=== PATIENT | male | born 1955 | race Caucasian/White ===

== ENCOUNTER → 2017-01-15 | Outpatient (CLI) | payer OTHER ==
[~2017-01-15] MED LIST: ERGO500037 PO; LISI-725 PO; OPTIRAY 320 IV PRN; TAMS0.4C38 PO; ZCR20 PO; tumeric PO
--- NOTE | 2017-01-15 11:21 | DIAGNOSTIC IMAGING REPORT ---
CT ANGIOGRAM OF THE CHEST CLINICAL HISTORY: Dyspnea. Atypical chest pain. COMPARISON STUDY: No priors. TECHNIQUE: Following the IV administration of 105 cc of Optiray 320, CT angiogram of the chest was performed from the upper abdomen to the thoracic inlet utilizing the pulmonary embolus protocol. Images are reviewed in the axial, sagittal, and coronal planes. 3-D MIPS images are created and assessed. IV contrast was administered without complication. CT DOSE: 648.36 mGy.cm FINDINGS: Thyroid: Imaged portions of the thyroid gland are normal in size and attenuation. Thoracic aorta: There is mild atherosclerotic calcification of the thoracic aorta, which is normal in caliber and demonstrates standard 3-vessel arch anatomy. No dissection is seen. Pulmonary vasculature: The pulmonary trunk is normal in caliber. There are no filling defects identified in main, lobar, or segmental pulmonary branches to suggest pulmonary embolus. Heart: The heart is mildly enlarged and without pericardial effusion. The coronary arteries are densely calcified. Lungs and pleural spaces: Evaluation of lung parenchyma is degraded by respiratory motion artifact. Mild emphysema is observed. The trachea and central airways are clear. Dependent atelectasis is noted. There is no airspace consolidation typical for pneumonia or pleural effusion. Mediastinum: There is no mediastinal lymphadenopathy. Yadi: Clear. Axillae: There is no axillary lymphadenopathy. Upper abdomen: There is evidence of hepatic steatosis. A tiny hiatal hernia is observed. Skeletal structures: No lytic or blastic bony lesions are seen. IMPRESSION: 1. There is no evidence of pulmonary embolus in the main, lobar, or segmental pulmonary arteries. 2. Cardiomegaly and emphysema. 3. Hepatic steatosis. 4. There is no airspace consolidation typical for pneumonia or pleural effusion. 5. Additional findings as above. Electronically signed by: Philip Spear M.D. 01/15/2017 11:20 AM Dictated Date/Time: 01/15/2017 11:10 AM
== END | disposition home or self-care (01) ==
LOC: C.CTS 10:23
PROVIDERS: ATTEND Internal Medicine Pulmonary Disease
DX: R06.02 Shortness of breath (principal); R06.09 Other forms of dyspnea; R07.89 Other chest pain; I51.7 Cardiomegaly; J43.9 Emphysema, unspecified; K76.0 Fatty (change of) liver, not elsewhere classified

== ENCOUNTER → 2017-01-17 | Outpatient (CLI) | payer OTHER ==
[~2017-01-17] MED LIST changes: -OPTIRAY 320 IV PRN; +PERFLUTREN LIPID MICROSPHERE (DEFINITY) IV ONE
--- NOTE | 2017-01-17 15:30 | EXERCISE STRESS ECHO ---
*NOTICE TO RECEIVING LIBERTARIAN AGENCY This information is strictly Confidential and protected under [place] law. [place] law prohibits you from making any further disclosure of this information unless further disclosure is expressly permitted by the written consent of the person to whom it pertains or is authorized by law. A general authorization for the release of medical or other information is not sufficient for this purpose. Hospital accepts no responsibility if the information is made available to any other person, INCLUDING THE PATIENT. Interpretation Summary * Name: ROXI SILVA Study Date: 01/17/2017 12:42 PM BP: 125/64 mmHg * Patient Location: [facility] HR: 83 * : 1955 (M/d/yyyy) Gender: Male Height: 74 in * Age: 61 yrs Ethnicity: CA Weight: 260 lb * Ordering Physician: Saji Azevedo * Referring Physician: Saji Azevedo * Performed By: Ladonna Kern RDCS * * Reason For Study: CHEST PAIN, SOB * BSA: 2.4 m2 * -- Conclusions -- * Normal stress echocardiogram at 7 METS and a peak heart rate of 85% maximum predicted. * No exercise induced chest pain. * No ECG changes. * Baseline echocardiogram notes normal left ventricular systolic function and diastolic dysfunction. Procedure Details * ECHOEX, CPT #94574 * A contrast injection of Definity was performed to improve assessment of LV function. * Contrast was injected into an intravenous site in the left arm. * One vial of Definity ultrasound contrast was diluted in normal saline to a total volume of 10 ml. A total of '4' ml of solution was administered during imaging. * Lot # [id number] of Definity utilized for procedure. * Expiration date MAR 04. * The attending nurse who injected the contrast agent was SANDRA PETER RN. Left Ventricle * The left ventricle is normal in size. * There is borderline concentric left ventricular hypertrophy. * Ejection Fraction = 65-70%. * Left ventricular systolic function is normal. * Resting wall motion: Normal. Stress wall motion: Appropriate increase in Left ventricular systolic function and decrease in cavity size. No stress induced segmental wall motion abnormalities. Right Ventricle * The right ventricle is normal size. * The right ventricular systolic function is normal as assessed by tricuspid annular plane systolic excursion (TAPSE) (normal >1.5 cm). Atria * The left atrium is mildly dilated. * Borderline right atrial enlargement. * There is no evidence of atrial septal defect, but resolution does not allow assessment for a patent foramen ovale. Mitral Valve * The mitral valve anatomy is normal. * There is no mitral valve stenosis. * Significant mitral regurgitation is absent. Tricuspid Valve * The tricuspid valve anatomy is normal. * There is no tricuspid stenosis. * Significant tricuspid regurgitation is absent. Aortic Valve * The aortic valve is trileaflet. * The aortic valve opens well. * Aortic valve sclerosis moderate, without significant aortic valvular stenosis. * No aortic regurgitation is present. Pulmonic Valve * The pulmonary valve is not well seen, but the Doppler examination is normal without significant regurgitation or stenosis. Great Vessels * The aortic root and proximal ascending aorta are normal sized. Pericardium * There is no pericardial effusion. Stress Parameters * Normal baseline electrocardiogram. * Stress ECG: No ST changes. No arrhythmias. * The stress portion of this study was personally supervised by the undersigned interpreting physician. * Rest heart rate was '83' BPM. * Rest blood pressure was '125/64' * Maximum heart rate achieved was 136 bpm. * Maximum heart rate was 85 % of maximum age-predicted heart rate. * Maximum blood pressure was '158/78' * Total exercise time was '5:11' * Maximum exercise MET level achieved was '7.00' METS * Maximum treadmill speed was '2.5' miles per hour. * Maximum treadmill elevation was '12.00'% grade. * Exercise was terminated due to 'achieving target hr' Left Ventricular Diastolic Function * Grade I diastolic dysfunction, (abnormal relaxation pattern). MMode 2D Measurements and Calculations IVSd 1.6 cm IVSs 2.2 cm LVIDd 4.8 cm LVIDs 3.3 cm LVPWd 1.5 cm LVPWs 1.7 cm IVS/LVPW 1.1 FS 30.0 % EDV(Teich) 105.5 ml ESV(Teich) 45.2 ml EF(Teich) 57.2 % EDV(cubed) 107.9 ml ESV(cubed) 37.0 ml EF(cubed) 65.7 % % IVS thick 38.6 % % LVPW thick 19.0 % LV mass(C)d 305.7 grams LV mass(C)dI 125.8 grams/m\S\2 LV mass(C)s 288.4 grams LV mass(C)sI 118.7 grams/m\S\2 SV(Teich) 60.3 ml SI(Teich) 24.8 ml/m\S\2 SV(cubed) 70.9 ml SI(cubed) 29.2 ml/m\S\2 Ao root diam 3.4 cm Ao root area 9.2 cm\S\2 LA dimension 3.9 cm LA/Ao 1.1 LVAd ap4 32.2 cm\S\2 LVLd ap4 9.3 cm EDV(MOD-sp4) 94.7 ml EDV(sp4-el) 94.7 ml LVAs ap4 18.7 cm\S\2 LVLs ap4 6.8 cm ESV(MOD-sp4) 43.8 ml ESV(sp4-el) 44.0 ml EF(MOD-sp4) 53.8 % EF(sp4-el) 53.5 % SV(MOD-sp4) 50.9 ml SI(MOD-sp4) 21.0 ml/m\S\2 SV(sp4-el) 50.7 ml SI(sp4-el) 20.9 ml/m\S\2 Doppler Measurements and Calculations MV E max lizet 71.0 cm/sec MV A max lizet 70.4 cm/sec MV E/A 1.0 MV dec time 0.27 sec Ao V2 max 132.9 cm/sec Ao max PG 7.1 mmHg Ao max PG (full) 0.07 mmHg LV V1 max PG 7.0 mmHg LV V1 max 132.2 cm/sec
== END | disposition home or self-care (01) ==
LOC: C.CPL 12:37
PROVIDERS: ATTEND Internal Medicine Pulmonary Disease
DX: R06.02 Shortness of breath (principal); R07.89 Other chest pain

== ENCOUNTER 2017-01-27 07:43 | Day surgery (SDC) | payer OTHER ==
[2017-01-27] VITALS (16 sets, daily range): BP systolic 94–138; BP diastolic 53–84; PULSE 75–90; TEMP 36.5–36.8; O2SAT 91–95; Ht 188 cm; Wt 118.0 kg
[~2017-01-27] VITALS: Ht 188 cm; Wt 118.0 kg
[2017-01-27] MEDS ORDERED: IPRATROPIUM BROMIDE NEB SOLN 0.02% 2.5 ML VIAL INH ONE (07:44)
[2017-01-27] MEDS ORDERED: LEVALBUTEROL 1.25MG/3ML NEB INH ONE ×2 (07:44)
[2017-01-27] MEDS ORDERED: MIDAZOLAM HCL 5 MG/ML 1 ML VIAL IV ONE (07:44)
[2017-01-27] MEDS ORDERED: LIDOCAINE 4% W/AFRIN NASAL SOLN 4ML ONE (07:44)
[2017-01-27] MEDS ORDERED: FENTANYL CITRATE INJ 50 MCG/1 ML 2 ML VIAL IV ONE (07:44)
[2017-01-27] MEDS ORDERED: TAMS0.4C38 PO (07:56)
[2017-01-27] MEDS ORDERED: tumeric PO (07:56)
[2017-01-27] MEDS ORDERED: ZCR20 PO (07:56)
[2017-01-27] MEDS ORDERED: LISI-725 PO (07:56)
[2017-01-27] MEDS ORDERED: ERGO500037 PO (07:56)
--- NOTE | 2017-01-27 09:18 | Procedure Note ---
Pre-Mod Sedation Assessment General Date of Moderate Sedation: Jan 27, 2017. Vital Signs: Vital Signs Past 12 Hours Date Time Temp Pulse Resp B/P (MAP) Pulse Ox O2 Delivery O2 Flow Rate FiO2 01/27/17 07:58 36.6 83 20 115/74 (88) 94 Room Air Pre-Sedation Airway Assessment Oral Cavity: Chipped Teeth Hx of Sleep Apnea: No Smoking Status: Former Smoker Mallampati Classification: Class II ASA Classification: Class II Procedure Planning Contraindications-for Mod Sed: None Yes Notes The planned sedation has been discussed with the patient and consent obtained. I have identified the patient, determined the appropriateness of sedation and have assessed the patient immediately prior to the procedure. All medicine(s) and interventions are by my order.
--- NOTE | 2017-01-27 09:18 | History & Physical Bridge Note ---
H&P Re-Evaluation Bridge Note: I have examined the patient, reviewed the History & Physical and in the interval since the performance of the History & Physical I have noted the following changes of clinical significance: No changes noted
--- NOTE | 2017-01-27 12:17 | Discharge Instructions ---
Discharge Instructions Date of Service Jan 27, 2017. Admission Reason for Admission: Sob On Exertion, Atypical Chest Pain Discharge Discharge Diagnosis / Problem: Dyspnea on Exertion Discharge Goals Goal(s): Diagnostic testing Activity Recommendations Activity Limitations: resume your previous activity . Instructions / Follow-Up Instructions / Follow-Up ACTIVITY RECOMMENDATIONS: * Rest today, resume normal activity tomorrow. * Do not drive today. SPECIAL CARE INSTRUCTIONS: * Call your physician if you experience any chest or shoulder pain, fever, coughing, spitting up blood (more than 2 teaspoons) or excessive shortness of breath. * Remove dressing from IV site (where needle was placed into the vein) after 2 hours. Apply a warm, moist compress to site if irritation occurs. Call physician if site becomes red or painful to touch. * You may eat 4 hours after the completion of your procedure * Resume all usual medications as previously directed FOLLOW UP VISIT: * Keep any scheduled doctor appointments. Current Hospital Diet Patient's current hospital diet: Discharge Diet Recommended Diet: Regular Diet Procedures Procedures Performed: Bronchoscopy Pending Studies Studies pending at discharge: yes List of pending studies: Cultures Medical Emergencies . Who to Call and When: Medical Emergencies: If at any time you feel your situation is an emergency, please call 911 immediately. . Non-Emergent Contact Non-Emergency issues call your: Primary Care Provider . . "Provider Documentation" section prepared by Lyle Montes De Oca PA-C. . VTE Core Measure Inpt VTE Proph given/why not?: Treatment not indicated (Same day procedure.)
--- NOTE | 2017-01-27 13:39 | OPERATIVE REPORT ---
DATE OF OPERATION: 01/27/2017 PROCEDURE: Fiberoptic bronchoscopy with and without transbronchial biopsy. INDICATIONS: COPD, chronic cough, and progressive signs of dyspnea. ANESTHESIA PREOPERATIVELY: None. ANESTHESIA DURING THE PROCEDURE: 4 mg IV Versed, 50 mcg IV fentanyl, 20 mL 2% Xylocaine spray above and below the cords, and 4% viscous Xylocaine intranasally. DESCRIPTION OF PROCEDURE: Fiberoptic bronchoscope was inserted into the left naris with minimal difficulty and passed to the level of the true vocal cords. The cords appeared to approximate normally with phonation without evidence of lesions or paralysis. The scope was then introduced in the right and left tracheobronchial tree. The trachea was normal. [place] was sharp. The right main stem bronchus was free of endobronchial lesions. The right upper lobe, the apical-posterior and anterior segments, bronchus intermedius, right middle lobe and the medial and lateral segments and all basilar segments of the right lower lobe were found to be free of endobronchial lesions. All lobar segments were copiously lavaged with normosol and a moderate amount of mucopurulent secretion was lavaged and aspirated until clear. Left tracheobronchial tree showed no endobronchial lesions, but moderately severe changes of global inflammatory mucosal change with mucous pitting and bronchial crypts as well as clefts seen throughout the left tracheobronchial tree greater than the right tracheobronchial tree. The mucosa appeared to be hyperemic and edematous and consistent with chronic bronchitis. No endobronchial lesion was seen. The right main stem bronchus was then reentered and the medial wall was brushed x3 for cytologic preparation with minimal amount of bleeding, which abated spontaneously. No biopsies were attempted. The procedure was terminated. The patient tolerated the procedure well and was given a nebulizer treatment with Xopenex 1.25 mg and transferred to the medical treatment. He hemodynamically stable with no signs of respiratory compromise. We will await microbiological and cytologic examination of the bronchial washings. I attest to the content of the Intraoperative Record and any orders documented therein. Any exception s are noted below.
[2017-01-29 14:17] LABS: HERPES SIMPLEX CULT SOURCE OTHER-R&L TRACH TREE; HERPES SIMPLEX VIRUS CULT NOT ISOLATED (NOT ISOLATED)
== END 2017-01-27 12:34 | disposition home or self-care (01) ==
LOC: C.ACU 07:43
PROVIDERS: ATTEND Internal Medicine Pulmonary Disease
DX: J44.9 Chronic obstructive pulmonary disease, unspecified (principal); R05 Cough; R06.02 Shortness of breath; I10 Essential (primary) hypertension; E78.5 Hyperlipidemia, unspecified; G47.33 Obstructive sleep apnea (adult) (pediatric); Z90.89 Acquired absence of other organs; Z98.890 Other specified postprocedural states; Z87.891 Personal history of nicotine dependence; Z79.899 Other long term (current) drug therapy; Z82.49 Family history of ischemic heart disease and other diseases of the circulatory system

== ENCOUNTER → 2017-01-30 | Outpatient (CLI) | payer OTHER ==
[~2017-01-30] MED LIST changes: -PERFLUTREN LIPID MICROSPHERE (DEFINITY) IV ONE
--- NOTE | 2017-02-27 09:29 | Pulmonary Function Report ---
Pulmonary Function Report [f__Service__Date/Time] Pulmonary Function Report: d. pre bronchodilator spirometry reveals a mild obstructive ventilatory defect give more pronounced a low lung volumes. There was neck is response to bronchodilator suggesting a reversible airways component. Lung volumes and diffusion capacity were well within normal limits. Clinical correlation is needed.
== END | disposition home or self-care (01) ==
LOC: C.RC 09:52
PROVIDERS: ATTEND Internal Medicine Pulmonary Disease
DX: R06.09 Other forms of dyspnea (principal); R07.89 Other chest pain; R06.02 Shortness of breath

== ENCOUNTER → 2017-12-08 | Day surgery (SDC) | payer OTHER ==
[~2017-12-08] VITALS: Ht 188 cm; Wt 112.0 kg
[~2017-12-08] MED LIST changes: +FENTANYL CITRATE INJ 50 MCG/1 ML 2 ML VIAL IV ONE; +LIDOCAINE 4% INH SOLN 4 ML BTL TOP ONE; +LIDOCAINE HCL 2% LOCAL 50ML VIAL INSTIL ONE; +LIDOCAINE VISCOUS 2% 100ML TOP ONE; +MIDAZOLAM HCL 5 MG/ML 1 ML VIAL IV ONE; +OPTIRAY 320 IV PRN; +SPRIN/30 INH; +albuterol inhaler; +nebulizer
--- NOTE | 2017-12-08 07:55 | DIAGNOSTIC IMAGING REPORT ---
CT OF THE CHEST WITH IV CONTRAST CLINICAL HISTORY: J44.9 COPD (chronic obstructive pulmonary disease) with chronic COUGH COMPARISON STUDY: 01/15/2017 TECHNIQUE: Following the IV administration of 93 mL of Optiray-320, CT of the thorax was performed from the thoracic inlet to the lung bases. Images are reviewed in the axial, sagittal, and coronal planes. IV contrast was administered without complication. A dose lowering technique was utilized adhering to the principles of ALARA. CT DOSE: 554.43 mGy.cm FINDINGS: Thyroid: Imaged portions of the thyroid gland are normal in appearance. Thoracic aorta: The thoracic aorta is normal in course and caliber, noting standard 3-vessel arch anatomy. No aneurysm or dissection is seen. Moderate atheromatous changes involve the proximal right innominate artery Pulmonary vasculature: The pulmonary trunk is normal in caliber. There are no central filling defects identified to suggest pulmonary embolus. Note that this examination was not protocoled for the evaluation of pulmonary emboli. HEART: There are mild coronary artery calcifications Lungs and pleural spaces: There is pulmonary emphysema. There is no focal pulmonary consolidation. There are no suspicious pulmonary masses. Mediastinum: Subcarinal lymph nodes remain the upper limits of normal in size. Yadi: There is no evidence of pathologic hilar adenopathy Axilla: There is no evidence of pathologic axillary lymphadenopathy Upper abdomen: There is mild hepatic steatosis Skeletal structures: There are no lytic or blastic osseous lesions. IMPRESSION: 1. No acute intrathoracic findings 2. Pulmonary emphysema 3. No evidence of focal pulmonary consolidation. No suspicious pulmonary masses. 4. Hepatic steatosis Electronically signed by: Reji Wolf M.D. 12/08/2017 7:54 AM Dictated Date/Time: 12/08/2017 7:49 AM
--- NOTE | 2017-12-08 08:00 | Pre Sedation Assessment ---
Pre Sedation Assessment General Date of Sedation: Dec 08, 2017. Pre-Sedation Airway Assessment Smoking Status: Former Smoker Mallampati Classification: Class II ASA Classification: Class III Procedure Planning Contraindications for Sedation: None Current Medications Reviewed: Yes Notes The planned sedation has been discussed with the patient. Informed Consent was obtained. I have identified the patient, determined the appropriateness of sedation and have assessed the patient immediately prior to the procedure. All medicine(s) and interventions are by my order.
[2017-12-08 08:14] VITALS: BP 150/87; PULSE 75; TEMP 36.5; O2SAT 96; Ht 188 cm; Wt 112.0 kg
--- NOTE | 2017-12-08 09:49 | Post Sedation Assessment ---
Post Sedation Assessment General Date of Sedation Dec 08, 2017. Vital Signs: Vital Signs Past 12 Hours Date Time Temp Pulse Resp B/P (MAP) Pulse Ox O2 Delivery O2 Flow Rate FiO2 12/08/17 09:35 82 16 113/79 94 Mask 6 12/08/17 09:30 77 21 127/82 94 Mask 6 12/08/17 09:25 77 21 133/88 94 Mask 6 12/08/17 09:20 77 16 94 Room Air 12/08/17 08:14 36.5 75 20 150/87 (108) 96 Room Air Post Procedure Recovery Score Activity: (2) Moves 4 extremities * Respiration: (2) Deep breath/cough Circulation: (2) +/-20% PreAnes Value Consciousness: (1) Arouseable (by name) Oxygen Saturation: (1) O2 needed for >90% Post Anesthesia Score: 8 Discharge Sedation Level of Care: Fast Track Phase II Post Sedation Plan On clinical assessment, the patient appears to have tolerated the sedation without complications. Patient is recovering as anticipated. Patient will continue to be monitored by nursing and may be discharged when sedation discharge criteria are met per below protocol. Upon Completions of procedure and additional 15 minutes continue every 5 minute vital signs and the P.A.R. score; then discharge to a Phase I or Fast Track to Phase II per the following guidelines: * Discharge Patient to appropriate Phase II area if PAR is 8 or greater or return to pre- procedure baseline. The post - procedure orders will be as directed. * If PAR score is less than 8 or not return to pre-procedure baseline then patient will follow Phase I monitoring till PAR is reached for Phase II. The Phase I may be done in procedure room or may call to secure a Phase I area. * If naloxone or flumazenil are used for reversal, hold in Phase I for an additional 60 -120 minutes before discharge to Phase II. Please call the Sedation Physician to re-evaluate and complete post-note for discharge to Phase II area. Do NOT discharge from procedure sedation or Phase 1 until post- sedation evaluation note is complete by procedure /sedation MD Sedation Discharge Instructions to be given to the patient at discharge to home.
--- NOTE | 2017-12-08 09:49 | [facility] Operative Report ---
Operative Report Operative Date Dec 08, 2017. Pre-Operative Diagnosis COPD Post-Operative Diagnosis COPD Procedure(s) Performed BRONCHOSCOPY Surgeon DR. KIMBALL Director Of [employer] Surgeon(s) NONE Findings Chronic Mucopurulent Bronchitis Complication(s) None Disposition I attest to the content of the Intraoperative Record and any orders documented therein. Any exceptions are noted below.
--- NOTE | 2017-12-08 09:51 | Discharge Instructions ---
Discharge Instructions Date of Service Dec 08, 2017. Admission Reason for Admission: COPD Discharge Discharge Diagnosis / Problem: Chronic Mucopurulent Bronchitis Discharge Goals Goal(s): Diagnostic testing Activity Recommendations Activity Limitations: resume your previous activity Lifting Limitations: none Exercise/Sports Limitations: none May Resume Sexual Activity: when tolerated Shower/Bathe: no limitations Driving or Machine Use: resume 1 day after discharge none . Instructions / Follow-Up Instructions / Follow-Up ACTIVITY RECOMMENDATIONS: * Rest today, resume normal activity tomorrow. * Do not drive today. SPECIAL CARE INSTRUCTIONS: * Call your physician if you experience any chest or shoulder pain, fever, coughing, spitting up blood (more than 2 teaspoons) or excessive shortness of breath. * Remove dressing from IV site (where needle was placed into the vein) after 2 hours. Apply a warm, moist compress to site if irritation occurs. Call physician if site becomes red or painful to touch. FOLLOW UP VISIT: * Keep any scheduled doctor appointments. Current Hospital Diet Patient's current hospital diet: regular Discharge Diet Recommended Diet: Regular Diet Fluid Restriction: None Procedures Procedures Performed: BRONCHOSCOPY Pending Studies Studies pending at discharge: no Medical Emergencies . Who to Call and When: Medical Emergencies: If at any time you feel your situation is an emergency, please call 911 immediately. . Non-Emergent Contact Non-Emergency issues call your: Matrix Worker Call Non-Emergent contact if: temperature is above 101 . . "Provider Documentation" section prepared by Saji Azevedo. .
[2017-12-08 09:55] VITALS: BP 107/79; PULSE 81; TEMP 36.4; O2SAT 91
[2017-12-08 10:15] VITALS: BP 132/86; PULSE 81; O2SAT 94
[2017-12-08 10:49] VITALS: BP 110/65; PULSE 74; O2SAT 94
[2017-12-08 11:15] VITALS: BP 105/62; PULSE 72; O2SAT 93
[2017-12-08 11:51] VITALS: BP 108/72; PULSE 71; TEMP 36.4; O2SAT 92
--- NOTE | 2017-12-08 12:31 | OPERATIVE REPORT ---
DATE OF OPERATION: 12/08/2017 INDICATIONS: Persistent chest congestion refractory to outpatient therapy. Rule out mucoid impaction. ANESTHESIA PREOPERATIVELY: None. ANESTHESIA DURING PROCEDURE: 5 mg IV Versed, 100 mcg IV fentanyl, 20 mL 2% Xylocaine spray above and below the cords, 4% viscous Xylocaine intranasally. PROCEDURE: Fiberoptic bronchoscope was inserted into the right naris with minimal difficulty and passed to the level of the true vocal cords. The cords appear to approximate normally with phonation without evidence for lesions or paralysis. The scope was then introduced in the trachea and right and left tracheobronchial tree. The kala was sharp. The right main stem bronchus found to be free of endobronchial lesions. Right upper lobe, the apical-posterior and anterior segments, bronchus intermedius, right middle lobe and the medial lateral segments and all basilar segments of right lower lobe were found to be free of endobronchial lesions. Moderate amount of mucopurulent secretion was lavaged from right lower lobe basal segments to clear. Mucus pitting with bronchial clefts and crypts was seen throughout the right tracheobronchial tree. Left tracheobronchial tree was explored. Copious amount of mucopurulent secretion was lavaged from left upper lobe and lingular orifices and segmental bronchi until clear. There was evidence for mucoid impaction. This area was lavaged with normosol and the aspirate sent for appropriate studies. Left upper lobe, the apical-posterior and anterior segments, lingular subdivision and respective segmental bronchi of the left lower lobe were found to be free of endobronchial lesions following lavage of each segmental bronchus with normal saline. The aspirate was sent for appropriate studies. No brushings or biopsies were deemed necessary. The patient tolerated the procedure well and was given nebulizer treatments, Xopenex 1.25 mg then transferred to the medical treatment unit hemodynamically stable with no further signs of respiratory compromise. We will await microbiological and cytologic examination of the bronchial washings. I attest to the content of the Intraoperative Record and any orders documented therein. Any exception s are noted below.
[2017-12-10 11:03] LABS: HERPES SIMPLEX VIRUS CULT NOT ISOLATED (NOT ISOLATED)
== END | disposition home or self-care (01) ==
LOC: C.CTS 07:16
PROVIDERS: ATTEND Internal Medicine Pulmonary Disease
DX: J44.9 Chronic obstructive pulmonary disease, unspecified (principal); K21.9 Gastro-esophageal reflux disease without esophagitis; I10 Essential (primary) hypertension; G47.33 Obstructive sleep apnea (adult) (pediatric); E78.5 Hyperlipidemia, unspecified; Z90.49 Acquired absence of other specified parts of digestive tract; Z82.49 Family history of ischemic heart disease and other diseases of the circulatory system; Z87.891 Personal history of nicotine dependence